=== PATIENT | female | born 1955 | race Caucasian/White ===

== ENCOUNTER → 2016-10-24 | Outpatient (CLI) | payer BC ==
[~2016-10-24] MED LIST: ALPRAZOLAM0.5 M3 PO; ATORVASTATIN CA10 M1 PO; CARVEDILOL6.25 M1 PO; FUROSEMIDE 40MG40 M1 PO; LEVOTHYROXIN0.025 M1 PO; LYRICA75 MG PO
--- NOTE | 2016-10-25 10:14 | RADIOLOGY REPORT PS360 ---
CHEST(2 VIEWS-NOT PORTABLE) HISTORY: CHEST PAIN ORDERING PHYSICIAN: Jerome Berger MD PATIENT AGE: 61 years COMPARISON: [id number] FINDINGS: The cardiomediastinal silhouette and pulmonary vascularity are within normal limits. MediPort catheter remains in place with the tip in the region of the SVC. Surgical clips are present in the right axilla. There are tiny bilateral pleural effusions. On the lateral view there is patchy density noted anterior to the trachea suggesting a subsegmental area of atelectasis or infiltrate and may be in the left upper lobe. No acute bony anomalies. IMPRESSION: 1. Subsegmental atelectasis or infiltrate anterior to the trachea probably on the left 2. Trace bilateral effusions
--- NOTE | 2016-10-25 10:14 | RADIOLOGY REPORT PS360 ---
CHEST(2 VIEWS-NOT PORTABLE) HISTORY: CHEST PAIN ORDERING PHYSICIAN: Jerome Berger MD PATIENT AGE: 61 years COMPARISON: [id number] FINDINGS: The cardiomediastinal silhouette and pulmonary vascularity are within normal limits. MediPort catheter remains in place with the tip in the region of the SVC. Surgical clips are present in the right axilla. There are tiny bilateral pleural effusions. On the lateral view there is patchy density noted anterior to the trachea suggesting a subsegmental area of atelectasis or infiltrate and may be in the left upper lobe. No acute bony anomalies. IMPRESSION: 1. Subsegmental atelectasis or infiltrate anterior to the trachea probably on the left 2. Trace bilateral effusions
== END ==
LOC: RAD 14:21
DX: R07.9 Chest pain, unspecified (principal)

== ENCOUNTER → 2017-05-18 | Outpatient (CLI) | payer BC ==
[2017-05-18 10:13] LABS: BUN 13 mg/dL (7-18)
[2017-05-18 10:16] LABS: GFR (ESTIMATED) 73 ML/MIN (59-)
== END ==
LOC: LAB 08:51
PROVIDERS: Physician Assistant
DX: E03.9 Hypothyroidism, unspecified (principal); Z13.220 Encounter for screening for lipoid disorders